=== PATIENT | female | born 1960 | race Two or more races ===

== ENCOUNTER 2021-08-14 08:24 | Outpatient (CLI) | payer BC | END 2021-08-14 08:25 | disposition home or self-care (01) | LOC: NUCLEAR 08:24 | DX: D05.12 Intraductal carcinoma in situ of left breast (principal); M81.0 Age-related osteoporosis without current pathological fracture; Z79.811 Long term (current) use of aromatase inhibitors ==

== ENCOUNTER 2021-08-15 07:27 | Outpatient (CLI) | payer BC | END 2021-08-15 07:42 | disposition home or self-care (01) | LOC: TOM 07:27 | DX: D05.12 Intraductal carcinoma in situ of left breast (principal); M81.0 Age-related osteoporosis without current pathological fracture; Z79.811 Long term (current) use of aromatase inhibitors ==

== ENCOUNTER 2021-08-16 11:12 | Outpatient (CLI) | payer BC | END 2021-08-16 11:24 | disposition home or self-care (01) | LOC: MAMO-SONO 11:12 | DX: D05.12 Intraductal carcinoma in situ of left breast (principal) ==